=== PATIENT | male | born 2000 | race Native Hawaiian/Other Pacific Islander ===

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

== ENCOUNTER 2019-02-26 16:42 | Emergency (ER) | payer BC ==
[~2019-02-26] VITALS: Ht 177.8 cm; Wt 136.1 kg
[2019-02-26 17:00] VITALS: BP 115/71; TEMP 98.2
== END 2019-02-26 18:38 | disposition home or self-care (01) ==
LOC: ED 16:42
DX: Z98.890 Other specified postprocedural states (principal); K59.00 Constipation, unspecified
CPT/HCPCS: 74022; 99282

== ENCOUNTER 2019-03-29 21:56 | Emergency (ER) | payer BC ==
[~2019-03-29] VITALS: Ht 177.8 cm; Wt 124.7 kg
[2019-03-29 22:12] VITALS: TEMP 98.1
[2019-03-29 23:23] VITALS: BP 126/70
== END 2019-03-29 23:23 | disposition home or self-care (01) ==
LOC: ED 21:56
DX: S06.0X0A Concussion without loss of consciousness, initial encounter (principal); R51 Headache; V94.0XXA Hitting object or bottom of body of water due to fall from watercraft, initial encounter
CPT/HCPCS: 99283

== ENCOUNTER 2020-07-24 10:28 | Emergency (ER) | payer BC | END 2020-07-24 12:20 | disposition home or self-care (01) | LOC: ED 10:28 | DX: R07.89 Other chest pain (principal); K21.9 Gastro-esophageal reflux disease without esophagitis | CPT/HCPCS: 36415; 80320; 82150; 82550; 83690; 84484; 93005; 99283 ==